=== PATIENT | male | born 1930 | race Caucasian/White ===

== ENCOUNTER 2016-10-09 17:04 | Emergency (ER) | payer MEDICARE, OTHER, BC ==
[2016-10-09] MEDS ORDERED: HYDROcodone/Acetaminophen 10/325 mg Tablet ONE (17:31)
--- NOTE | 2016-10-09 18:06 | RAD ---
LEFT FOOT: 10/09/16 Three views obtained. HISTORY: Object fell on left foot with injury and pain. Enthesophytes from the calcaneus. Degenerative changes in the inner tarsal joints and tarsometatarsa l joints. 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 There is evidence of a chip fracture off the corner of the proximal phalanx of the fifth toe at the MTP joint medially. No other evidence of fracture. IMPRESSION: Evidence of chip fracture from the corner of the proximal phalanx of the fifth toe at the MTP joint. POS: [facility]
== END 2016-10-09 18:13 | disposition home or self-care (01) ==
LOC: BURERS 17:04
DX: S97.82XA Crushing injury of left foot, initial encounter (principal); S92.522A Displaced fracture of middle phalanx of left lesser toe(s), initial encounter for closed fracture; S90.32XA Contusion of left foot, initial encounter; Z79.899 Other long term (current) drug therapy; W22.8XXA Striking against or struck by other objects, initial encounter

== ENCOUNTER 2018-08-24 17:03 | Emergency (ER) | payer MEDICARE ==
[2018-08-24 17:50] LABS: #Basophils 0.1 thou/uL (0.0-0.2); #Eosinphils 0.1 thou/uL (0.0-0.7); #Lymphocytes 0.7 thou/uL (1.20-3.40); #Monocytes 0.6 thou/uL (0.11-0.59); #Neutrophils 4.7 thou/uL (1.40-6.50); %Eosinophils 1.4 % (0.0-10.0); %Lymphocytes 11.1 % (21.0-51.0); %Monocytes 9.3 % (0.0-10.0); %Neutrophils 77.4 % (42.0-75.0); Hemoglobin 12.5 g/dL (14.0-18.0); Mean Corpuscular HGB CONC 34.5 g/dL (32.0-36.0); Mean Platelet Volume 9.7 fL (7.4-10.4); Platelet Count 157 thou/uL (130-400); RBC Distribution Width 12.5 % (11.5-14.5); Red Blood Cell (RBC) Count 4.16 mill/uL (4.70-6.10)
[2018-08-24 18:06] LABS: ALT (SGPT) 8 U/L (8-55); AST (SGOT) 13 U/L (5-34); Albumin 3.9 g/dL (3.4-4.8); Alkaline Phosphatase 59 U/L (40-150); Anion Gap 12 mmol/L (10-20); BUN (Urea Nitrogen) 42 mg/dL (8.4-25.7); Calc. Creatinine Clearance 0 mL/min (70-130); Calcium 9.1 mg/dL (7.8-10.44); Carbon Dioxide 25 mmol/L (23-31); Chloride 105 mmol/L (98-107); Estimated GFR-MDRD 30; Globulin 2.9 g/dL (2.4-3.5); Glucose 97 mg/dL (83-110); Protein, Total 6.8 g/dL (5.8-8.1); Sodium 138 mmol/L (136-145)
[2018-08-24] MEDS ORDERED: Aspirin Chewable 81 MG TAB ONE (18:52)
[2018-08-24] MEDS ORDERED: Metoprolol Tartrate 5 MG/5 ML VIAL ONE (18:53)
[2018-08-24] MEDS ORDERED: Enoxaparin Sodium 100 MG/ML SYRINGE ONE (18:53)
[2018-08-24 18:54] LABS: Clarity Clear (Clear)
[2018-08-24 18:55] LABS: Bilirubin Negative (Negative); Blood, Urine Small (Negative); Glucose, Urine (Dipstick) Negative (Negative); Leukocyte Negative (Negative); Nitrite Negative (Negative); Protein, Urine (Dipstick) Negative (Neg-Trace); Specific Gravity, Urine 1.015 (1.005-1.030); Urobilinogen 0.2 mg/dL (0.2-1.0); pH, Urine 5.5 (5.0-9.0)
[2018-08-24 18:56] LABS: CKMB 3.6 ng/mL (0-6.6)
[2018-08-24 19:00] LABS: Bacteria/HPF Rare-Few HPF (None Seen); Crystals/HPF None Seen HPF (Negative); Hyaline Casts/LPF NONE SEEN LPF (0-3 Hyaline); Other Casts/LPF None Seen LPF (0-3 Hyaline); Oval Fat Bodies/HPF None Seen HPF (None Seen); RBC/HPF 0-3 HPF (0-3); Renal Epithelial None Seen HPF (0-3); Sperm/HPF None Seen HPF (None Seen); Squamous Epithelial None Seen HPF (0-3); Transitional Epithelial NONE SEEN HPF (0-3); Trichomonas/HPF None Seen HPF (None Seen); WBC/HPF 0-3 HPF (0-3); Yeast-All Forms None Seen HPF (None Seen)
--- NOTE | 2018-08-24 19:34 | CT ---
CT OF THE BRAIN WITHOUT CONTRAST 08/24/18 No prior scans were available for comparison. Deep white matter hypolucency is typical of chronic microvascular ischemia. 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 There were no findings strongly suggestive of acute stroke. There was no mass, edema, or bleeding seen. The calvarium appears intact. Several rounded masses in the maxillary sinuses are probably retention cysts but could be polyps. The skull appears intact. The ventricular sizes are commensurate with the atrophy and age of the patient. IMPRESSION: Mild chronic ischemic changes but no acute intracranial findings. POS: HOME
--- NOTE | 2018-08-24 19:38 | RAD ---
CHEST TWO VIEWS: 08/24/18 Comparison is made with the prior study of 06/03/13. Chronic elevation of the left hemidiaphragm is no different than before. Mild distention of bowel loo ps beneath the diaphragm is also fairly typical for this patient. Some plate-like atelectasis is seen over the elevated diaphragm. The heart is mildly enlarged but there are no congestive changes. There is a very small amount of haziness adjacent to the right heart border with some indistinctness of th at border. There may be a minor right middle lobe infiltrate here. There is a questionable density in the right upper lobe where several bones overlap. It measures 6 to 7 mm in size. It could be a small nodule or just artifact caused by the overlap. Future followup chest x-ray might be prudent to take a second look at the area. IMPRESSION: 1. Mild cardiomegaly without congestive change. 2. Chronically elevated left hemidiaphragm with overlying atelectasis. 3. Slight amount of haziness to the right of the heart. I cannot exclude a minimal right middle lobe infiltrate. 4. 6 to 7 mm equivocal density in the right upper lobe. See discussed above. POS: HOME
== END 2018-08-24 19:38 | disposition home or self-care (01) ==
LOC: BURERS 17:03
DX: J18.1 Lobar pneumonia, unspecified organism (principal); I48.91 Unspecified atrial fibrillation; N17.9 Acute kidney failure, unspecified; R79.89 Other specified abnormal findings of blood chemistry; Z87.442 Personal history of urinary calculi
CPT/HCPCS: 70450; 71046; 80053; 81003; 81015; 82553; 83605; 83880; 84443; 84484; 85025; 93005; 94760; 96360; 96372; J1650

== ENCOUNTER 2018-10-22 21:00 | Emergency (ER) | payer MEDICARE | END 2018-10-22 21:54 | disposition home or self-care (01) | LOC: BURERS 21:00 | DX: R33.9 Retention of urine, unspecified (principal) | CPT/HCPCS: 51798 ==

== ENCOUNTER 2018-10-23 05:29 | Emergency (ER) | payer MEDICARE ==
[2018-10-23 06:20] LABS: #Basophils 0.1 thou/uL (0.0-0.2); #Eosinphils 0.4 thou/uL (0.0-0.7); #Lymphocytes 1.1 thou/uL (1.20-3.40); #Monocytes 0.6 thou/uL (0.11-0.59); #Neutrophils 4.3 thou/uL (1.40-6.50); %Basophils 1.1 % (0.0-1.0); %Eosinophils 5.8 % (0.0-10.0); %Lymphocytes 16.5 % (21.0-51.0); %Monocytes 9.4 % (0.0-10.0); %Neutrophils 67.2 % (42.0-75.0); Hemoglobin 10.4 g/dL (14.0-18.0); Mean Corpuscular HGB CONC 31.3 g/dL (32.0-36.0); Mean Corpuscular Hemoglobin 28.6 pg (27.0-31.0); Mean Corpuscular Volume 91.1 fL (78.0-98.0); Mean Platelet Volume 7.7 fL (7.4-10.4); Platelet Count 174 thou/uL (130-400); RBC Distribution Width 13.3 % (11.5-14.5); Red Blood Cell (RBC) Count 3.63 mill/uL (4.70-6.10); White Blood Cell (WBC) Count 6.4 thou/uL (4.8-10.8)
[2018-10-23 06:25] LABS: PTT 27.8 SEC (22.9-36.1); Prothrombin Time 13.7 SEC (12.0-14.7)
[2018-10-23 06:29] LABS: Bilirubin Small (Negative); Blood, Urine Large (Negative); Clarity Turbid (Clear); Glucose, Urine (Dipstick) Unable to Interpret mg/dL (Negative); Leukocyte Trace (Negative); Nitrite Positive (Negative); Protein, Urine (Dipstick) > or equal to 300 mg/dL (Neg-Trace); Urobilinogen 0.2 mg/dL (0.2-1.0)
[2018-10-23 06:30] LABS: Bacteria/HPF 1+ HPF (None Seen); RBC/HPF GREATER THAN 50-TNTC HPF (0-3); Squamous Epithelial 0-3 HPF (0-3); WBC/HPF 0-3 HPF (0-3)
[2018-10-23 06:32] LABS: Specific Gravity, Urine 1.015 (1.002-1.036)
[2018-10-23 06:33] LABS: ALT (SGPT) 10 U/L (8-55); AST (SGOT) 11 U/L (5-34); Albumin 3.6 g/dL (3.4-4.8); Alkaline Phosphatase 50 U/L (40-150); Anion Gap 13 mmol/L (10-20); BUN (Urea Nitrogen) 44 mg/dL (8.4-25.7); Bilirubin, Total 0.5 mg/dL (0.2-1.2); Calc. Creatinine Clearance 0 mL/min (70-130); Calcium 8.9 mg/dL (7.8-10.44); Carbon Dioxide 21 mmol/L (23-31); Chloride 108 mmol/L (98-107); Estimated GFR-MDRD 34; Globulin 2.7 g/dL (2.4-3.5); Glucose 95 mg/dL (83-110); Potassium 4.1 mmol/L (3.5-5.1); Protein, Total 6.3 g/dL (5.8-8.1); Sodium 138 mmol/L (136-145)
== END 2018-10-23 07:05 | disposition home or self-care (01) ==
LOC: BURERS 05:29
DX: R31.9 Hematuria, unspecified (principal); I48.91 Unspecified atrial fibrillation; Z79.82 Long term (current) use of aspirin; Z79.899 Other long term (current) drug therapy
CPT/HCPCS: 51702; 80053; 81003; 81015; 85025; 85610; 85730; 87077; 87086; 87186

== ENCOUNTER 2018-10-24 09:19 | Emergency (ER) | payer MEDICARE ==
[2018-10-24 09:48] LABS: #Basophils 0.1 thou/uL (0.0-0.2); #Eosinphils 0.2 thou/uL (0.0-0.7); #Lymphocytes 0.7 thou/uL (1.20-3.40); #Monocytes 0.6 thou/uL (0.11-0.59); #Neutrophils 5.9 thou/uL (1.40-6.50); %Basophils 0.8 % (0.0-1.0); %Eosinophils 3.1 % (0.0-10.0); %Lymphocytes 9.7 % (21.0-51.0); %Monocytes 7.9 % (0.0-10.0); %Neutrophils 78.4 % (42.0-75.0); Hemoglobin 10.2 g/dL (14.0-18.0); Mean Corpuscular HGB CONC 31.6 g/dL (32.0-36.0); Mean Corpuscular Hemoglobin 28.7 pg (27.0-31.0); Mean Corpuscular Volume 90.7 fL (78.0-98.0); Mean Platelet Volume 6.4 fL (7.4-10.4); Platelet Count 185 thou/uL (130-400); RBC Distribution Width 12.9 % (11.5-14.5); Red Blood Cell (RBC) Count 3.56 mill/uL (4.70-6.10); White Blood Cell (WBC) Count 7.5 thou/uL (4.8-10.8)
[2018-10-24 10:01] LABS: Anion Gap 13 mmol/L (10-20); BUN (Urea Nitrogen) 44 mg/dL (8.4-25.7); Calc. Creatinine Clearance 0 mL/min (70-130); Calcium 8.9 mg/dL (7.8-10.44); Carbon Dioxide 22 mmol/L (23-31); Chloride 107 mmol/L (98-107); Estimated GFR-MDRD 31; Glucose 100 mg/dL (83-110); Potassium 4.1 mmol/L (3.5-5.1); Sodium 138 mmol/L (136-145)
[2018-10-24 10:06] LABS: Clarity Turbid (Clear); Specific Gravity, Urine 1.015 (1.005-1.030)
[2018-10-24 10:07] LABS: Bilirubin Small (Negative); Blood, Urine Large (Negative); Glucose, Urine (Dipstick) Negative (Negative); Leukocyte Large (Negative); Nitrite Positive (Negative); Protein, Urine (Dipstick) > or equal to 300 mg/dL (Neg-Trace); Urobilinogen 0.2 mg/dL (0.2-1.0)
[2018-10-24 10:10] LABS: Bacteria/HPF 3+ HPF (None Seen); Crystals/HPF 3+ AMORPH URATES HPF (Negative); RBC/HPF GREATER THAN 50-TNTC HPF (0-3); Squamous Epithelial 0-3 HPF (0-3)
== END 2018-10-24 10:44 | disposition home or self-care (01) ==
LOC: BURERS 09:19
DX: T83.091A Other mechanical complication of indwelling urethral catheter, initial encounter (principal); N18.9 Chronic kidney disease, unspecified; I48.91 Unspecified atrial fibrillation; Z79.82 Long term (current) use of aspirin; Z79.891 Long term (current) use of opiate analgesic; Z79.899 Other long term (current) drug therapy; Z87.442 Personal history of urinary calculi
CPT/HCPCS: 36415; 80048; 81003; 81015; 85025; 87077; 87086; 87186; 99283

== ENCOUNTER 2018-10-27 07:10 | Emergency (ER) | payer MEDICARE ==
[2018-10-27 08:04] LABS: Clarity Turbid (Clear); pH, Urine 8.5 (5.0-9.0)
[2018-10-27 08:11] LABS: Bacteria/HPF 1+ HPF (None Seen); RBC/HPF GREATER THAN 50-TNTC HPF (0-3); Squamous Epithelial 0-3 HPF (0-3); WBC/HPF 21-50 HPF (0-3)
[2018-10-27 08:12] LABS: Crystals/HPF 2+ AMORPH PHOS HPF (Negative)
== END 2018-10-27 07:50 | disposition home or self-care (01) ==
LOC: BURERS 07:10
DX: R31.9 Hematuria, unspecified (principal); I48.91 Unspecified atrial fibrillation; Z87.442 Personal history of urinary calculi; Z79.82 Long term (current) use of aspirin; Z79.891 Long term (current) use of opiate analgesic; Z79.899 Other long term (current) drug therapy
CPT/HCPCS: 81003; 81015; 99283

== ENCOUNTER 2018-11-04 05:59 | Emergency (ER) | payer MEDICARE ==
[2018-11-04 06:43] LABS: #Basophils 0.1 thou/uL (0.0-0.2); #Eosinphils 0.4 thou/uL (0.0-0.7); #Lymphocytes 0.9 thou/uL (1.20-3.40); #Monocytes 0.7 thou/uL (0.11-0.59); #Neutrophils 6.2 thou/uL (1.40-6.50); %Basophils 0.9 % (0.0-1.0); %Eosinophils 4.3 % (0.0-10.0); %Lymphocytes 11.2 % (21.0-51.0); %Monocytes 8.9 % (0.0-10.0); %Neutrophils 74.6 % (42.0-75.0); Hemoglobin 10.1 g/dL (14.0-18.0); Mean Corpuscular HGB CONC 32.2 g/dL (32.0-36.0); Mean Corpuscular Hemoglobin 28.8 pg (27.0-31.0); Mean Corpuscular Volume 89.4 fL (78.0-98.0); Mean Platelet Volume 8.2 fL (7.4-10.4); Platelet Count 164 thou/uL (130-400); RBC Distribution Width 13.2 % (11.5-14.5); Red Blood Cell (RBC) Count 3.51 mill/uL (4.70-6.10); White Blood Cell (WBC) Count 8.3 thou/uL (4.8-10.8)
[2018-11-04 06:58] LABS: ALT (SGPT) 10 U/L (8-55); AST (SGOT) 13 U/L (5-34); Albumin 3.5 g/dL (3.4-4.8); Alkaline Phosphatase 50 U/L (40-150); Anion Gap 12 mmol/L (10-20); BUN (Urea Nitrogen) 45 mg/dL (8.4-25.7); Bilirubin, Total 0.6 mg/dL (0.2-1.2); Calc. Creatinine Clearance 0 mL/min (70-130); Calcium 8.6 mg/dL (7.8-10.44); Carbon Dioxide 24 mmol/L (23-31); Chloride 105 mmol/L (98-107); Estimated GFR-MDRD 34; Globulin 2.6 g/dL (2.4-3.5); Glucose 99 mg/dL (83-110); Potassium 4.4 mmol/L (3.5-5.1); Protein, Total 6.1 g/dL (5.8-8.1); Sodium 137 mmol/L (136-145)
[2018-11-04 07:02] LABS: Bilirubin Negative (Negative); Blood, Urine Large (Negative); Clarity Clear (Clear); Glucose, Urine (Dipstick) Negative (Negative); Leukocyte Large (Negative); Nitrite Negative (Negative); Protein, Urine (Dipstick) Negative (Neg-Trace); Urobilinogen 0.2 mg/dL (0.2-1.0)
[2018-11-04 07:04] LABS: Specific Gravity, Urine 1.006 (1.002-1.036)
[2018-11-04 07:13] LABS: RBC/HPF 0-3 HPF (0-3); WBC/HPF 21-50 HPF (0-3)
[2018-11-04 07:14] LABS: Bacteria/HPF Rare-Few HPF (None Seen); Crystals/HPF RARE AMORPH URATES HPF (Negative); Squamous Epithelial None Seen HPF (0-3)
[2018-11-04 07:15] LABS: CKMB 2.7 ng/mL (0-6.6)
[2018-11-04 08:27] LABS: Troponin I 0.036 ng/mL (< 0.028)
== END 2018-11-04 08:50 | disposition home or self-care (01) ==
LOC: BURERS 05:59
DX: T83.011A Breakdown (mechanical) of indwelling urethral catheter, initial encounter (principal); N47.6 Balanoposthitis; R55 Syncope and collapse; I48.91 Unspecified atrial fibrillation; Z79.82 Long term (current) use of aspirin
CPT/HCPCS: 36415; 51702; 80053; 81003; 81015; 82553; 84484; 85025; 87086; 93005

== ENCOUNTER 2019-02-05 12:22 | Emergency (ER) | payer MEDICARE ==
[2019-02-05 12:53] LABS: #Basophils 0.1 thou/uL (0.0-0.2); #Eosinphils 0.4 thou/uL (0.0-0.7); #Lymphocytes 0.9 thou/uL (1.20-3.40); #Monocytes 0.5 thou/uL (0.11-0.59); #Neutrophils 3.8 thou/uL (1.40-6.50); %Eosinophils 6.6 % (0.0-10.0); %Lymphocytes 15.9 % (21.0-51.0); %Monocytes 8.1 % (0.0-10.0); %Neutrophils 68.4 % (42.0-75.0); Hemoglobin 10.9 g/dL (14.0-18.0); Mean Corpuscular HGB CONC 32.9 g/dL (32.0-36.0); Mean Corpuscular Hemoglobin 28.9 pg (27.0-31.0); Mean Corpuscular Volume 87.9 fL (78.0-98.0); Mean Platelet Volume 8.4 fL (7.4-10.4); Platelet Count 139 thou/uL (130-400); RBC Distribution Width 12.3 % (11.5-14.5); Red Blood Cell (RBC) Count 3.79 mill/uL (4.70-6.10); White Blood Cell (WBC) Count 5.6 thou/uL (4.8-10.8)
[2019-02-05 13:08] LABS: ALT (SGPT) 8 U/L (8-55); AST (SGOT) 11 U/L (5-34); Albumin 3.6 g/dL (3.4-4.8); Alkaline Phosphatase 60 U/L (40-150); Anion Gap 14 mmol/L (10-20); BUN (Urea Nitrogen) 40 mg/dL (8.4-25.7); Bilirubin, Total 0.7 mg/dL (0.2-1.2); Calc. Creatinine Clearance 0 mL/min (70-130); Calcium 8.8 mg/dL (7.8-10.44); Carbon Dioxide 21 mmol/L (23-31); Chloride 107 mmol/L (98-107); Estimated GFR-MDRD 35; Globulin 2.8 g/dL (2.4-3.5); Glucose 102 mg/dL (83-110); Potassium 4.4 mmol/L (3.5-5.1); Protein, Total 6.4 g/dL (5.8-8.1); Sodium 138 mmol/L (136-145)
--- NOTE | 2019-02-05 13:17 | RAD ---
EXAM: 3 views of the lumbosacral spine HISTORY: Low back pain and syncope COMPARISON: None FINDINGS: 3 views of the lumbosacral spine shows normal height and alignment of the vertebral bodies without fracture or subluxation. Moderate to severe degenerative changes are seen throughout the lumbar spine with intervertebral disc space narrowing and osteophyte formation. The sacroiliac joints are unremarkable. Vascular calcifications are seen in the aorta. 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
[2019-02-05 13:25] LABS: CKMB 3.2 ng/mL (0-6.6)
== END 2019-02-05 13:40 | disposition home or self-care (01) ==
LOC: BURERS 12:22
DX: S39.92XA Unspecified injury of lower back, initial encounter (principal); R55 Syncope and collapse; I48.91 Unspecified atrial fibrillation; Z79.899 Other long term (current) drug therapy; W18.30XA Fall on same level, unspecified, initial encounter
CPT/HCPCS: 72100; 80053; 82553; 84484; 85025